=== PATIENT | female | born 1995 | race Caucasian/White ===

== ENCOUNTER 2018-09-04 23:58 | Emergency (ER) | payer BC ==
[~2018-09-04] VITALS: Ht 152.4 cm; Wt 71.7 kg
[2018-09-05] MEDS ORDERED: TDAP [DIPH/PERTUSSIS/TET] 0.5 ML VIAL IM ONE ×2 (01:30→01:36)
--- NOTE | 2018-09-05 01:30 | NUR ---
PT REC'D MEDICATION ORDERED.
--- NOTE | 2018-09-05 02:14 | NUR ---
CALLING YASMINE RE: SIMBA MENDEZ.
[2018-09-05] MEDS ORDERED: HYDROCODONE/APAP 5/325MG 1 EACH TABLET PO ONE (03:00)
[2018-09-05] MEDS ORDERED: HYDROCODONE/APAP 5/325MG 1 EACH TABLET ONE (03:16)
--- NOTE | 2018-09-05 03:27 | NUR ---
PT IS REC'ING A 4" LONG ARM POSTERIOR ORTHOGLASS SPLINT TO THE RUE. PT TO RECEIVE A SLING WELL.
--- NOTE | 2018-09-05 03:28 | NUR ---
Patient discharged to home in stable condition. Written and verbal after care instructions given. Patient verbalizes understanding of instruction AND RX. PT TO CALL HER PMD TODAY FOR AN APPT WITH ORTHOPEDICS WHEN SHE RETURNS HOME. PT IS CURRENTLY ON VACATION. VSS
--- NOTE | 2018-09-05 03:45 | NUR ---
PT REC'D A DISK WITH THE IMAGING ON IT. PT AMBULATED OUT WITH A STEADY GAIT.
[2018-09-05 04:30] VITALS: BP 132/89
== END 2018-09-05 03:45 | disposition home or self-care (01) ==
LOC: ER 09-05 00:05
DX: S52.121A Displaced fracture of head of right radius, initial encounter for closed fracture (principal); S52.131A Displaced fracture of neck of right radius, initial encounter for closed fracture; W01.0XXA Fall on same level from slipping, tripping and stumbling without subsequent striking against object, initial encounter; Y93.01 Activity, walking, marching and hiking; Y92.89 Other specified places as the place of occurrence of the external cause; Y99.8 Other external cause status
CPT/HCPCS: 73080-TC; 90715